=== PATIENT | female | born 1995 | race Caucasian/White ===

== ENCOUNTER 2024-08-31 22:35 | Outpatient (CLI) | payer MEDICAID, SELFPAY ==
[2024-08-31 22:52] VITALS: BMI 40.1
[2024-08-31 22:58] VITALS: BP 146/77; PULSE 97; RESP 14; TEMP 36.6
[2024-08-31 22:59] VITALS: BP 134/68; PULSE 97
[2024-08-31 23:15] LABS: Red Blood Cells-Urine 0 SEEN /hpf (0-5)
[2024-08-31 23:23] LABS: Color, Urine Yellow (Yellow); Glucose, Dipstick Normal (Normal); Ketone-Dipstick Negative (Negative); Leukocyte Esterase-Dipstick 25 /ul (Negative); Nitrite-Dipstick Negative (Negative); Occult Blood-Urine Negative /ul (Negative); Protein-Dipstick Negative (Negative); Urine Bilirubin Dipstick Negative (Negative); Urine Clarity Clear (Clear); Urine Urobilinogen Normal (Normal); Urine pH 6.5 (5.0 - 8.0)
[2024-08-31 23:31] LABS: Bacteria 2+ /hpf (None Seen); Mucous, Urine RARE /hpf (<or=2+); Squamous Epithelial Cells - UA 5-10 SEEN /hpf (5-10); White Blood Cells 5-10 SEEN /hpf (0-5)
[2024-08-31] MEDS: Ondansetron 8 MG Tablet PO (23:54)
[2024-08-31] MEDS: Acetaminophen 500 MG Tablet 1000 MG PO (23:54)
--- NOTE | 2024-09-01 07:16 | OB.TRI.NOTE ---
HPI - General General Date of Admission: 08/31/24 Date of Service: 08/31/24 Chief Complaint: cramping HPI Narrative FREDO RUBIO, is a 29 F who presents abdominal cramping most of the day. Has not improved with rest or hydration. COVID positive 5 days ago. Nausea no vomiting/diarrhea. Improving symptoms. No contractions toco. EFM appropriate for gestational age. Zofran for nausea Maternal Data Information Final CAROLE: 11/15/24 Gestational age: 29+1 PFSH PFSH Home Medications ?Medication ?Instructions ?Recorded ?Last Taken ?Type aripiprazole 2 mg tablet (Abilify) 12 mg PO DAILY 08/31/24 08/31/24 History aspirin 81 mg capsule 81 mg PO DAILY 08/31/24 08/31/24 History budesonide-formoterol HFA 80 1 inh inhalation BID 08/31/24 08/30/24 History mcg-4.5 mcg/actuation aerosol inhaler (Symbicort) buspirone 15 mg tablet 15 mg PO BID 08/31/24 08/31/24 History famotidine 20 mg tablet (Pepcid) 20 mg PO DAILY 08/31/24 08/31/24 History venlafaxine 75 mg tablet 75 mg PO DAILY 08/31/24 Unknown History ondansetron 4 mg disintegrating 4 mg PO Q8H PRN nausea and 09/01/24 Unknown Rx tablet vomiting #20 tabs Allergy/AdvReac Type Severity Reaction Status Date / Time Penicillins (PCN) Allergy Severe Anaphylaxis Verified 08/31/24 23:56 fexofenadine (From Sarah) Allergy Intermediate migraines Verified 08/31/24 23:56 amitriptyline (From Elavil) Allergy Unknown PT UNSURE Verified 08/31/24 23:56 OF REACTION History 7 Elective abortions Hx Para 2 Spontaneous abortions Hx # Term Pregnancies Ectopic pregnancies Hx # Pregnancies Multiple births # of living children NST FHR Rate Baby A Baseline: 135 Variability:: Moderate Accelerations:: 10 x 10 Decelerations:: None NST Reactive:: Yes Uterine Activity:: quiet Assessment & Plan (1) Cramping affecting , antepartum: (2) 29 weeks gestation of : PLAN: Plan Routine visits
== END 2024-09-01 00:25 | disposition home or self-care (01) ==
LOC: WPOUT 22:51 → WP 22:51
PROVIDERS: PCP Family Medicine; Referring Provider Obstetrics & Gynecology; Visit Provider Obstetrics & Gynecology
DX: O99.891 Other specified diseases and conditions complicating pregnancy (principal); R10.9 Unspecified abdominal pain; Z79.899 Other long term (current) drug therapy; Z79.82 Long term (current) use of aspirin; Z3A.29 29 weeks gestation of pregnancy
CPT/HCPCS: 59025; 59050; 81001; 87086; 87088; 99221; G0378

== ENCOUNTER 2024-10-13 18:02 | Outpatient (CLI) | payer MEDICAID, SELFPAY ==
[2024-10-13 18:10] VITALS: BMI 40.8
[2024-10-13 18:27] VITALS: BP 133/77; PULSE 83; RESP 16; TEMP 36.8
[2024-10-13 18:30] LABS: Hematocrit 33.1 % (37-47); Hemoglobin 11.1 g/dL (12.0-15.0); Mean Corp Hgb Conc 33.5 g/dL (32-36); Mean Corpuscular Hgb 32.3 pg (27.0-32.0); Mean Corpuscular Volume 96.2 fL (81-99); Mean Platelet Vol. 10.5 fl (6.2-12.0); Platelet Count 310 K/mm3 (150-450); RBC Distribution Width CV 14.4 % (11.6-14.6); RBC Distribution Width SD 50.1 fl (35.1-43.9); Red Blood Count 3.44 M/mm3 (4.2-5.4); White Blood Count 15.4 K/mm3 (4.4-11.0)
[2024-10-13 18:43] VITALS: BP 130/75; PULSE 76
[2024-10-13 18:52] LABS: AST(SGOT) 13 U/L (15-37); Alanine Aminotransfer ALT/SGPT 16 U/L (13-56); EST Glomerular Filtration Rate 153 mL/min (>60); Est Glom Filt Rate - Afr Amer 185 mL/min (>60); Uric Acid 3.8 mg/dL (2.6-6.0)
[2024-10-13 18:58] VITALS: BP 133/76; PULSE 83
[2024-10-13 19:09] LABS: Protein, Urine (Random) 24.1 mg/dL (<11.9); Protein:Creat Ratio 340 mg/g CRE (0-200)
[2024-10-13 19:13] VITALS: BP 131/76; PULSE 77
[2024-10-13] MEDS: 0.9% Saline Lock 10 ML Syringe IV (19:30)
--- NOTE | 2024-10-13 19:31 | OB.TRI.NOTE ---
HPI - General HPI Narrative FREDO RUBIO, is a 29 F at 35.2 weeks gestation who presents to triage with headache, lower back pain and elevated blood pressures at home. She reports feeling nauseated today and not able to eat or drink much. Took BP at home and it was running 150's /90's. She denies any visual changes, SOB, CP or RUQ pain. No swelling. PFSH PFSH Home Medications ?Medication ?Instructions ?Recorded ?Last Taken ?Type aripiprazole 2 mg tablet (Abilify) 12 mg PO DAILY 08/31/24 10/13/24 08:00 History aspirin 81 mg capsule 81 mg PO DAILY 08/31/24 10/13/24 08:00 History budesonide-formoterol HFA 80 1 inh inhalation BID 08/31/24 10/13/24 08:00 History mcg-4.5 mcg/actuation aerosol inhaler (Symbicort) buspirone 15 mg tablet 15 mg PO BID 08/31/24 10/13/24 08:00 History venlafaxine 75 mg tablet 75 mg PO DAILY 08/31/24 10/13/24 08:00 History ondansetron 4 mg disintegrating 4 mg PO Q8H PRN nausea and 09/01/24 10/13/24 14:00 Rx tablet vomiting #20 tabs omeprazole 20 mg capsule,delayed 20 mg PO DAILY 10/13/24 10/13/24 08:00 History release Allergy/AdvReac Type Severity Reaction Status Date / Time Penicillins (PCN) Allergy Severe Anaphylaxis Verified 10/13/24 18:11 fexofenadine (From Sarah) Allergy Intermediate migraines Verified 10/13/24 18:11 amitriptyline (From Elavil) Allergy Unknown PT UNSURE Verified 10/13/24 18:11 OF REACTION History 7 Elective abortions Hx Para 2 Spontaneous abortions Hx # Term Pregnancies Ectopic pregnancies Hx # Pregnancies Multiple births # of living children ROS Eyes Eyes: Denies blurry vision Cardiovascular Cardiovascular: Reports none; Denies chest pain at rest, chest pain with activity or dizziness Respiratory/Chest Respiratory/Chest: Denies cough or dyspnea Gastrointestinal Gastrointestinal: Reports none and other; Denies diarrhea or vomiting Genitourinary Genitourinary: Denies dysuria Musculoskeletal Musculoskeletal: Reports none Integumentary Integumentary: Reports none; Denies rash Neurologic Neurologic: Denies dizziness or other visual disturbances Psychiatric Psychiatric: Reports none Physical Exam Const alert and no apparent distress General Appearance: cooperative Orientation / Consciousness: awake Exam Limitations: no limitations HEENT normocephalic Eyes General Eye: normal appearance of both eyes Neck full ROM Chest inspection of chest normal Resp normal respiratory effort and normal air movement Effort and Inspection: symmetric chest movement Auscultation: clear to auscultation bilaterally Cardio regular rate GI soft to palpation, non-tender and non-distended Inspection: and other Back/Spine normal ROM Extremity full ROM, normal capillary refill and no calf tenderness Skin no rashes or lesions noted Neuro oriented x3 and CN's II-XII intact bilaterally Psych mental status grossly normal NST FHR Rate Baby A Baseline: 125 Variability:: Moderate Accelerations:: 15 x 15 Decelerations:: None NST Reactive:: Yes FHR Category:: Category I Uterine Activity:: Irritability Assessment & Plan (1) 35 weeks gestation of : (2) History of pre-eclampsia: (3) LGA (large for gestational age) fetus: (4) Polyhydramnios: (5) Supraventricular tachycardia: (6) ADHD: (7) Anxiety and depression: (8) Previous delivery, antepartum: (9) Proteinuria: PLAN: Plan BP monitoring- No severe range pressures 130's/70's since arrival Tylenol 1000 mg PO x 1 now Start IV and give 1000 cc bolus of LR PIH labs- normal ranges P/C ratio 340 UA sent- +bacteria and ketones Urine culture sent- will start treatment with Macrobid 100 mg PO BID x [address] Acuña involved with plan of care D/C home with follow up in office this week Desires TOLAC but has repeat C/S scheduled for next month
[2024-10-13] MEDS: Lactated Ringers 1,000 ML 999 ML IV (19:33)
[2024-10-13 19:39] VITALS: PULSE 75; O2SAT 98
[2024-10-13 19:51] LABS: Mucous, Urine 0 SEEN /hpf (<or=2+); Red Blood Cells-Urine 0 SEEN /hpf (0-5)
[2024-10-13] MEDS: Acetaminophen 500 MG Tablet 1000 MG PO (19:52)
[2024-10-13 19:54] LABS: Color, Urine Yellow (Yellow); Glucose, Dipstick Normal (Normal); Leukocyte Esterase-Dipstick 500 /ul (Negative); Nitrite-Dipstick Negative (Negative); Occult Blood-Urine Negative /ul (Negative); Protein-Dipstick Negative (Negative); Specific Gravity, Urine 1.005 (1.002-1.030); Urine Bilirubin Dipstick Negative (Negative); Urine Clarity Sl. Cloudy (Clear); Urine Urobilinogen Normal (Normal)
[2024-10-13 19:55] LABS: Ketone-Dipstick 150 mg/dl (Negative)
[2024-10-13 20:09] LABS: Bacteria 2+ /hpf (None Seen); Squamous Epithelial Cells - UA 0-5 SEEN /hpf (5-10); White Blood Cells 5-10 SEEN /hpf (0-5)
[2024-10-13] MEDS: Nitrofurantoin Macrocrystals 100 MG Capsule PO (20:57)
== END 2024-10-13 21:00 | disposition home or self-care (01) ==
LOC: WPOUT 18:07 → WP 18:07
PROVIDERS: PCP Family Medicine; Visit Provider Advanced Practice Midwife
DX: O99.891 Other specified diseases and conditions complicating pregnancy (principal); R51.9 Headache, unspecified; M54.50 Low back pain, unspecified; Z79.82 Long term (current) use of aspirin; Z79.899 Other long term (current) drug therapy; Z79.51 Long term (current) use of inhaled steroids; O36.63X0 Maternal care for excessive fetal growth, third trimester, not applicable or unspecified; O99.343 Other mental disorders complicating pregnancy, third trimester; F90.2 Attention-deficit hyperactivity disorder, combined type; F41.9 Anxiety disorder, unspecified; F32.A Depression, unspecified; Z3A.35 35 weeks gestation of pregnancy; R03.0 Elevated blood-pressure reading, without diagnosis of hypertension
CPT/HCPCS: 96360; 36415; 59025; 59050; 81001; 82565; 82570; 84156; 84450; 84460; 84550; 85027; 87086; 87088; 99221; A4216; G0378

== ENCOUNTER 2024-10-24 08:34 | Outpatient (CLI) | payer MEDICAID, SELFPAY ==
[2024-10-24] VITALS (9 sets, daily range): BP systolic 120–135; BP diastolic 61–80; PULSE 70–92; RESP 16; TEMP 36.8; O2SAT 97–99; BMI 41.0
[2024-10-24 09:34] LABS: Hemoglobin 10.7 g/dL (12.0-15.0); Mean Corp Hgb Conc 33.4 g/dL (32-36); Mean Corpuscular Hgb 32.3 pg (27.0-32.0); Mean Corpuscular Volume 96.7 fL (81-99); Mean Platelet Vol. 10.4 fl (6.2-12.0); Platelet Count 263 K/mm3 (150-450); RBC Distribution Width SD 49.3 fl (35.1-43.9); Red Blood Count 3.31 M/mm3 (4.2-5.4)
[2024-10-24 09:51] LABS: AST(SGOT) 16 U/L (15-37); Alanine Aminotransfer ALT/SGPT 12 U/L (13-56); EST Glomerular Filtration Rate 124 mL/min (>60); Est Glom Filt Rate - Afr Amer 150 mL/min (>60); Estimated Creatinine Clearance 163.38 ml/min; Uric Acid 3.9 mg/dL (2.6-6.0)
[2024-10-24 09:55] LABS: Protein, Urine (Random) 11.1 mg/dL (<11.9); Protein:Creat Ratio 337 mg/g CRE (0-200)
--- NOTE | 2024-10-24 18:33 | OB.TRI.HP_ITS ---
HPI - General HPI Narrative FREDO RUBIO, is a 29 F who presents for elevated BP at home in 150's. Headache that was present since waking up but did not take anything at this time. No visual changes or RUQ pain. Maternal Data Information Final CAROLE: 10/15/24 PFSH PFSH Home Medications ?Medication ?Instructions ?Recorded ?Last Taken ?Type aripiprazole 2 mg tablet (Abilify) 12 mg PO DAILY 08/31/24 10/23/24 07:00 History 12 mg aspirin 81 mg capsule 81 mg PO DAILY 08/31/24 10/23/24 07:00 History 81 mg budesonide-formoterol HFA 80 1 inh inhalation BID 08/31/24 10/23/24 21:31 History mcg-4.5 mcg/actuation aerosol 2 inh inhaler (Symbicort) buspirone 15 mg tablet 15 mg PO BID 08/31/24 10/23/24 21:00 History 15 mg venlafaxine 75 mg tablet 75 mg PO DAILY 08/31/24 10/23/24 07:00 History 75 mg ondansetron 4 mg disintegrating 4 mg PO Q8H PRN nausea and 09/01/24 10/23/24 18:00 Rx tablet vomiting #20 tabs 4 mg omeprazole 20 mg capsule,delayed 20 mg PO DAILY 10/13/24 10/23/24 07:00 History release 20 mg vit no.95-ferrous 1 tab PO DAILY 10/24/24 10/23/24 07:00 History fumarate 28 mg-folic acid 800 mcg 1 TAB tablet () Allergy/AdvReac Type Severity Reaction Status Date / Time Penicillins (PCN) Allergy Severe Anaphylaxis Verified 10/24/24 09:31 fexofenadine (From Sarah) Allergy Intermediate migraines Verified 10/24/24 09:31 amitriptyline (From Elavil) Allergy Unknown PT UNSURE Verified 10/24/24 09:31 OF REACTION History 7 Elective abortions Hx Para 2 Spontaneous abortions Hx # Term Pregnancies Ectopic pregnancies Hx # Pregnancies Multiple births # of living children Physical Exam Const alert and oriented x3 General Appearance: cooperative Orientation / Consciousness: awake, oriented to person, oriented to place and or iented to time Exam Limitations: no limitations HEENT normocephalic Head and Scalp: normal to inspection, normocephalic and atraumatic Face and Sinus: normal facial exam Eyes General Eye: normal appearance of both eyes Neck full ROM Chest Chest: symmetrical chest wall rise Resp normal respiratory effort and normal air movement Auscultation: clear to auscultation bilaterally Cardio regular rate, regular rhythm, S1 normal heart sound, S2 normal heart sound, no murmurs, no rub, no gallops and no clicks GI normal to inspection, nondistended, normoactive bowel sounds and non-tender appearance of the vagina normal Bladder / Kidney Exam: no CVA tenderness Back/Spine normal ROM Extremity normal to inspection and full ROM Skin no rashes or lesions noted Neuro oriented x3 and moves all extremities Sensorium / Orientation: awake, alert and oriented to person Motor Exam: clonus absent Deep Tendon Reflexes: Rt Patellar (L4): 2+ and Lt Patellar (L4): 2+ NST FHR Rate Baby A Baseline: 125 Variability:: Moderate Accelerations:: 15 x 15 Decelerations:: None NST Reactive:: Yes Uterine Activity:: None Assessment & Plan (1) Proteinuria: (2) 36 weeks gestation of : PLAN: Plan 1) Elevated BP at home but mild range on unit. Does not meet criteria for preeclampsia but proteinuria. History of preeclampsia with severe features. Headache today. discussed option for IOL and will return tomorrow for induction. 2) D/C home
== END 2024-10-24 11:03 | disposition home or self-care (01) ==
LOC: WPOUT 08:45 → WP 08:46
PROVIDERS: PCP Family Medicine; Referring Provider Advanced Practice Midwife; Visit Provider Advanced Practice Midwife
DX: O12.13 Gestational proteinuria, third trimester (principal); Z3A.36 36 weeks gestation of pregnancy; O99.891 Other specified diseases and conditions complicating pregnancy; R03.0 Elevated blood-pressure reading, without diagnosis of hypertension; R51.9 Headache, unspecified; Z79.899 Other long term (current) drug therapy; Z79.82 Long term (current) use of aspirin
CPT/HCPCS: 36415; 59025; 59050 ×2; 82565; 82570; 84156; 84450; 84460; 84550; 85027; G0378 ×2; 99221

== ENCOUNTER 2024-10-25 07:47 | Inpatient (IN) | payer MEDICAID, SELFPAY ==
[2024-10-25] VITALS (45 sets, daily range): BP systolic 125–160; BP diastolic 55–87; PULSE 61–94; RESP 15–18; TEMP 36.1–36.9; O2SAT 97–100; BMI 41.4
[2024-10-25 08:31] LABS: Absolute Lymphocyte Count 2.13 X10^3/uL (0.83-4.51); Absolute Neutrophil Count 8.8 X10^3/uL (2.0-7.7); Basophil# 0.05 X10^3/uL; Basophil% 0.4 % (0-1); Eosinophils% 2.5 % (0-5); Hematocrit 33.1 % (37-47); Hemoglobin 11.1 g/dL (12.0-15.0); Lymphocyte # 2.13 X10^3/ul (0.83-4.51); Lymphocyte % 17.5 % (19-41); Mean Corp Hgb Conc 33.5 g/dL (32-36); Mean Corpuscular Hgb 32.2 pg (27.0-32.0); Mean Corpuscular Volume 95.9 fL (81-99); Mean Platelet Vol. 10.8 fl (6.2-12.0); Monocyte# 0.78 X10^3/uL; Monocyte% 6.4 % (0-10); NRBC Flagged by Analyzer 0 % (0-5); Neutrophil # 8.75 X10^3/uL (2.7-7.7); Neutrophil % 72.1 % (47-70); Platelet Count 288 K/mm3 (150-450); RBC Distribution Width CV 14.3 % (11.6-14.6); RBC Distribution Width SD 49.9 fl (35.1-43.9); Red Blood Count 3.45 M/mm3 (4.2-5.4); White Blood Count 12.1 K/mm3 (4.4-11.0)
--- NOTE | 2024-10-25 08:32 | PCM.HP.OB ---
HPI - General General Date of Admission: 10/25/24 Date of Service: 10/25/24 Chief Complaint: Pre E at term HPI Narrative FREDO RUBIO, is a 29 F who presents IOL for Pre E. Previous c/s for elevated BP. Successful at 40 weeks. No headache today. Reviewed risk of IOL with previous c/s. Will jave low threshold for repeat c/s. Pit and dee only. No Cytotec. GBS unknown. Rapid collected Maternal Data Information Final CAROLE: 11/15/24 Gestational age: 37 PFSH PFSH Home Medications ?Medication ?Instructions ?Recorded ?Last Taken ?Type aripiprazole 2 mg tablet (Abilify) 12 mg PO DAILY anxiety 08/31/24 10/25/24 History aspirin 81 mg capsule 81 mg PO DAILY 08/31/24 10/25/24 History budesonide-formoterol HFA 80 1 inh inhalation BID asthma 08/31/24 10/25/24 History mcg-4.5 mcg/actuation aerosol inhaler (Symbicort) buspirone 15 mg tablet 15 mg PO BID depression 08/31/24 10/25/24 History venlafaxine 75 mg tablet 75 mg PO DAILY depression 08/31/24 10/25/24 History ondansetron 4 mg disintegrating 4 mg PO Q8H PRN nausea and 09/01/24 10/25/24 Rx tablet vomiting #20 tabs omeprazole 20 mg capsule,delayed 20 mg PO DAILY nausea 10/13/24 10/25/24 History release vit no.95-ferrous 1 tab PO DAILY 10/24/24 10/25/24 History fumarate 28 mg-folic acid 800 mcg tablet () Allergy/AdvReac Type Severity Reaction Status Date / Time nitrofurantoin (From Allergy Severe Hives Verified 10/25/24 08:13 Macrobid) Penicillins (PCN) Allergy Severe Anaphylaxis Verified 10/25/24 08:13 fexofenadine (From Sarah) Allergy Intermediate migraines Verified 10/25/24 08:13 amitriptyline (From Elavil) Allergy Unknown PT UNSURE Verified 10/25/24 08:13 OF REACTION History 7 Elective abortions Hx Para 2 Spontaneous abortions Hx # Term Pregnancies Ectopic pregnancies Hx # Pregnancies Multiple births # of living children NST FHR Rate Baby A Baseline: 135 Variability:: Moderate Accelerations:: 15 x 15 Decelerations:: None NST Reactive:: Yes FHR Category:: Category I Uterine Activity:: q 2 ROS Constitutional Constitutional: Denies fatigue, fever(s) or malaise Eyes Eyes: Denies change in vision ENT HEENT: Denies dizziness or headache(s) Cardiovascular Cardiovascular: Denies chest pain, dyspnea or lightheadedness Respiratory/Chest Respiratory/Chest: Denies cough or dyspnea Gastrointestinal Gastrointestinal: Denies change in bowel habits Genitourinary Genitourinary: Denies burning urination or genital lesions Integumentary Integumentary: Denies rash Neurologic Neurologic: Denies confusion, dizziness, headache(s), numbness or weakness Vital Signs Vital Signs Vital Signs: 10/25/24 08:15 10/25/24 08:15 10/25/24 08:17 Pulse Rate 81 72 Blood Pressure 147/87 H BP Systolic 147 BP Diastolic 87 Pulse Ox 10/25/24 08:17 10/25/24 08:22 10/25/24 08:22 Pulse Rate 91 Blood Pressure BP Systolic BP Diastolic Pulse Ox 98 98 10/25/24 08:25 10/25/24 08:25 10/25/24 08:30 Pulse Rate 78 72 Blood Pressure BP Systolic BP Diastolic Pulse Ox 98 10/25/24 08:30 Pulse Rate Blood Pressure BP Systolic BP Diastolic Pulse Ox 99 Physical Exam Const alert and no apparent distress General Appearance: cooperative HEENT normocephalic Resp normal respiratory effort Cardio regular rate GI soft to palpation GI Narrative: gravid, nontender, appropriate for gestational age Extremity no calf tenderness General Extremity: edema Skin no wounds Rashes: No rashes noted Psych activity/motor behavior normal Labs Labs Labs: Blood Type Pending Antibody Screen Pending Hct 33.1 % (37-47) L Hgb 11.1 g/dL (12.0-15.0) L Syphilis Total Ab Pending Assessment & Plan (1) Preeclampsia: QUALIFIERS: Trimester: third trimester Qualified Code(s): O14.93 - Unspecified pre-eclampsia, third trimester (2) 37 weeks gestation of : (3) Polyhydramnios: QUALIFIERS: Fetus number: single or unspecified fetus Trimester: third trimester Qualified Code(s): O40.3XX0 - Polyhydramnios, third trimester, not applicable or unspecified (4) LGA (large for gestational age) fetus: PLAN: Plan IOL for Pre E labs collected GBS unknown. Rapid pending. Epidural prn
[2024-10-25 08:44] LABS: AST(SGOT) 11 U/L (15-37); Alanine Aminotransfer ALT/SGPT 13 U/L (13-56); Creatinine, Serum 0.62 mg/dL (0.55-1.02); EST Glomerular Filtration Rate 119 mL/min (>60); Est Glom Filt Rate - Afr Amer 144 mL/min (>60); Estimated Creatinine Clearance 159.02 ml/min; Uric Acid 3.8 mg/dL (2.6-6.0)
[2024-10-25 08:47] LABS: Protein, Urine (Random) 6.5 mg/dL (<11.9); Protein:Creat Ratio 351 mg/g CRE (0-200)
[2024-10-25 08:58] LABS: Amphetamine Urine VISTA NEGATIVE (<1000 ng/mL); Barbiturate Urine VISTA NEGATIVE (< 200 ng/mL); Benzodiazepine Urine VISTA NEGATIVE (< 200 ng/mL); Cocaine Urine VISTA NEGATIVE (< 300 ng/mL); Ecstacy Urine VISTA NEGATIVE (< 500 ng/mL); Methadone Urine VISTA NEGATIVE (< 300 ng/mL); PCP Urine VISTA NEGATIVE (< 25 ng/mL); THC Urine VISTA POSITIVE (< 50 ng/mL); Vista UDS pH Range 6
[2024-10-25 09:03] LABS: Syphilis Antibodies Non-reactive
[2024-10-25] MEDS: Oxytocin 15 Units/NS 250ml 15 UNITS/250 ML IV.SOLN 2 UNITS IV (09:32)
[2024-10-25] MEDS: Lactated Ringers 1,000 ML 50 ML IV (09:34)
[2024-10-25] MEDS: Ondansetron 4 MG/2 ML Vial IV ×2 (11:32→18:57)
--- NOTE | 2024-10-25 12:26 | PCM.RX.CS ---
Consult Antibiotic Management Pharmacy has been consulted to manage selected antibiotic: Vancomycin Type of Intervention Type of Consult: New start Suspected Infection Suspected Infection: Other (GBS PPX) Labs Labs: Creatinine 0.62 mg/dL (0.55-1.02) 10/25/24 08:00 Est GFR (MDRD) Af Amer 144 mL/min (>60) 10/25/24 08:00 Est GFR (MDRD) Non-Af 119 mL/min (>60) 10/25/24 08:00 Microbiology Microbiology: Microbiology 10/25/24 08:30 Genital vaginal Group B Streptococcus (PCR) - Final Streptococcus group B Dosing Weight Weight used for dosin.5 kg Estimated Creatinine Clearance Estimated Creatinine Clearance: ~ 159 Goal Trough Goal Trough: 10-15 mcg/mL Pharmacy Plan for Drug Dosing Pharmacy Plan for Drug Dosing: Vancomycin 2000 mg IV Q8H, trough prior to 4th dose. Pharmacy Service will continue to monitor and adjust dosing as required. Follow-Up Labs Follow-Up Labs: Trough: Vancomycin Date/Time Labs Ordered Labs to be done on [date and time ordered]: 10/26/24 @ 1200
[2024-10-25] MEDS: Vancomycin HCl 2,000 MG in 0.9% Normal Saline (500mL Bag) 500 ML 250 MG IV ×2 (13:12→21:39)
--- NOTE | 2024-10-25 17:39 | PCM.PN.OB ---
Subjective Subjective Caba bulb placed. [address] Cat I Pit at 12 Objective Data Objective Data Vital Signs: Vital Signs Temp Pulse Resp BP Pulse Ox 97.8 F 63 18 129/62 H 97 10/25/24 16:58 10/25/24 16:58 10/25/24 16:58 10/25/24 16:58 10/25/24 13:11 Weight: 109.5 kg Body Mass Index (BMI) 41.4 Intake & Output: Intake and Output for Last 24 Hours 10/23/24 10/24/24 10/25/24 23:59 23:59 23:59 Intake Total 43.37 / 43.37 Balance 43.37 / 43.37 Lab / Micro Data 10/25/24 08:00 10/25/24 08:00 Labs: Laboratory Results - last 24 hr 10/25/24 08:00: WBC 12.1 H, RBC 3.45 L, Hgb 11.1 L, Hct 33.1 L, MCV 95.9, MCH 32.2 H, MCHC 33.5, RDW Std Deviation 49.9 H, RDW Coeff of Danisha 14.3, Plt Count 288, MPV 10.8, Immature Gran % (Auto) 1.100 H, Neut % (Auto) 72.1 H, Lymph % (Auto) 17.5 L, [place] % (Auto) 6.4, Eos % (Auto) 2.5, Baso % (Auto) 0.4, Absolute Neuts (auto) 8.8 H, Absolute Lymphs (auto) 2.13, Nucleated RBC % 0, Creatinine 0.62, Estim Creat Clear Calc 159.02, Est GFR (MDRD) Af Amer 144, Est GFR (MDRD) Non-Af 119, Uric Acid 3.8, AST 11 L, ALT 13, U Random Total Protein 6.5, Urine Creatinine 18.50, Protein/Creatinin Ratio 351 H, Syphilis Total Ab Non-reactive, Blood Type A POSITIVE, Antibody Screen NEGATIVE 10/25/24 08:30: Urine Opiates Screen NEGATIVE, Urine Methadone Screen NEGATIVE, Ur Barbiturates Screen NEGATIVE, Ur Phencyclidine Scrn NEGATIVE, Ur Amphetamines Screen NEGATIVE, MDMA (Ecstasy) Screen NEGATIVE, U Benzodiazepines Scrn NEGATIVE, Urine Cocaine Screen NEGATIVE, U Cannabinoids Screen POSITIVE H, Ur Drug Screen Comment Micro: Microbiology 10/25/24 08:30 Genital vaginal Group B Streptococcus (PCR) - Final Streptococcus group B NST FHR Rate Baby A Baseline: 140 Variability:: Moderate Accelerations:: 15 x 15 Decelerations:: None NST Reactive:: Yes FHR Category:: Category I Uterine Activity:: q 3 Assessment & Plan (1) 37 weeks gestation of : (2) Proteinuria: QUALIFIERS: Proteinuria type: gestational Trimester: third trimester Qualified Code(s): O12.13 - Gestational proteinuria, third trimester (3) Preeclampsia: QUALIFIERS: Trimester: third trimester Qualified Code(s): O14.93 - Unspecified pre-eclampsia, third trimester PLAN: Plan Epidural prn. AROM when able
[2024-10-25] MEDS: Lactated Ringers 1,000 ML 999 ML IV (19:24)
[2024-10-25] MEDS: fentaNYL-bupivacaine (epidural) 100 ML BAG EPIDURAL (20:05)
--- NOTE | 2024-10-25 20:49 | PCM.PN.OB ---
Subjective Subjective AROM for light mec fluid. 3-4/70/-3 IUPC and FSE placed. Cat I tracing. Epidural in place. BPs stable Objective Data Objective Data Vital Signs: Vital Signs Temp Pulse Resp BP Pulse Ox 98.1 F 67 16 140/58 H 100 10/25/24 19:31 10/25/24 20:31 10/25/24 20:31 10/25/24 20:31 10/25/24 20:31 Weight: 109.5 kg Body Mass Index (BMI) 41.4 Intake & Output: Intake and Output for Last 24 Hours 10/23/24 10/24/24 10/25/24 23:59 23:59 23:59 Intake Total 1075.87 / 1075.87 Output Total 200 / 200 Balance 875.87 / 875.87 Lab / Micro Data 10/25/24 08:00 10/25/24 08:00 Labs: Laboratory Results - last 24 hr 10/25/24 08:00: WBC 12.1 H, RBC 3.45 L, Hgb 11.1 L, Hct 33.1 L, MCV 95.9, MCH 32.2 H, MCHC 33.5, RDW Std Deviation 49.9 H, RDW Coeff of Danisha 14.3, Plt Count 288, MPV 10.8, Immature Gran % (Auto) 1.100 H, Neut % (Auto) 72.1 H, Lymph % (Auto) 17.5 L, [place] % (Auto) 6.4, Eos % (Auto) 2.5, Baso % (Auto) 0.4, Absolute Neuts (auto) 8.8 H, Absolute Lymphs (auto) 2.13, Nucleated RBC % 0, Creatinine 0.62, Estim Creat Clear Calc 159.02, Est GFR (MDRD) Af Amer 144, Est GFR (MDRD) Non-Af 119, Uric Acid 3.8, AST 11 L, ALT 13, U Random Total Protein 6.5, Urine Creatinine 18.50, Protein/Creatinin Ratio 351 H, Syphilis Total Ab Non-reactive, Blood Type A POSITIVE, Antibody Screen NEGATIVE 10/25/24 08:30: Urine Opiates Screen NEGATIVE, Urine Methadone Screen NEGATIVE, Ur Barbiturates Screen NEGATIVE, Ur Phencyclidine Scrn NEGATIVE, Ur Amphetamines Screen NEGATIVE, MDMA (Ecstasy) Screen NEGATIVE, U Benzodiazepines Scrn NEGATIVE, Urine Cocaine Screen NEGATIVE, U Cannabinoids Screen POSITIVE H, Ur Drug Screen Comment Micro: Microbiology 10/25/24 08:30 Genital vaginal Group B Streptococcus (PCR) - Final Streptococcus group B NST FHR Rate Baby A Baseline: 135 Variability:: Moderate Accelerations:: 15 x 15 Decelerations:: None NST Reactive:: Yes FHR Category:: Category I Uterine Activity:: q 2-3 Assessment & Plan (1) 37 weeks gestation of : (2) Proteinuria: QUALIFIERS: Proteinuria type: gestational Trimester: third trimester Qualified Code(s): O12.13 - Gestational proteinuria, third trimester (3) Preeclampsia: QUALIFIERS: Trimester: third trimester Qualified Code(s): O14.93 - Unspecified pre-eclampsia, third trimester (4) Previous delivery, antepartum: PLAN: Plan Pit per protocol
[2024-10-26] VITALS (24 sets, daily range): BP systolic 117–156; BP diastolic 56–80; PULSE 64–106; RESP 15–22; TEMP 36.4–37.1; O2SAT 95–100
--- NOTE | 2024-10-26 | FALS_PTH ---
PATIENT: FREDO RUBIO LOC: [facility] U#:[id number] AGE/SX: ROOM: WP021 RE10/25/[address]: Hodan Bruno CNM : 1995 BED: 1 DIS: 10/28/2024 SPEC #: [id number] RECD: 10/26/24 13:05 STATUS: AUDI TONY #: [id number] TOBIN: 10/26/24 00:[address]: Hodan Bruno DEPT: SURGICAL PATHOLOGY RECD BY: Irvin Hazel ENTERED: 10/26/24 13:05 SP TYPE: FALL TUBES OTHR DR: Dr. Tammy Vasques, Tissues: Fallopian tube Procedures: Surgery Specimen Level II HEADER OPERATION: Tubal ligation PRE-OP DIAGNOSIS: Sterilization TISSUE SUBMITTED: Bilateral fallopian tubes - stitch in right MICROSCOPIC DIAGNOSIS Bilateral fallopian tubes, salpingectomy: Bilateral fallopian tubes, no pathologic diagnosis. SJ: 10/27/2024 MICROSCOPIC DESCRIPTION Slides are reviewed. GROSS DESCRIPTION Received in fixative is one container labeled with the patient's name and designated bilateral fallopian tubes- stitch on right. The specimen consists of bilateral fallopian tubes including fimbrial ends. Right fallopian tube measures 6.5 cm in length and 1 cm in diameter. Left fallopian tube measures 5.5cm in length and 1cm in diameter. Sections reveal unremarkable cut surfaces. Concentrator Operator sections are submitted in two cassettes: 1- right fallopian tube, 2- left fallopian tube. / TIERNEY: 10/26/2024 TC:4 CPT: 57772 x2
[2024-10-26] MEDS: Ondansetron 4 MG/2 ML Vial IV ×2 (00:31→12:13)
[2024-10-26] MEDS: 0.9% Saline Lock 10 ML Syringe IV ×4 (00:31→21:51)
[2024-10-26] MEDS: fentaNYL-bupivacaine (epidural) 100 ML BAG EPIDURAL ×2 (00:44→06:54)
[2024-10-26] MEDS: Lactated Ringers 1,000 ML 200 ML IV (02:30)
[2024-10-26] MEDS: Acetaminophen 500 MG Tablet PO (05:33)
--- NOTE | 2024-10-26 06:12 | PN.OBGYN_ITS ---
Subjective Subjective Reached maximum Pitocin titration. Has made very little cervical change. Vertex still at a high station. 4/80/-4. tracing has been overall reassuring. Discussed options with patient. Can take a pit break and restart or choose repeat for failed induction. Patient is opting for repeat . Patient would like a tubal and did complete a title 19 on 08/18/24. Objective Data Objective Data Vital Signs: Vital Signs Temp Pulse Resp BP Pulse Ox O2 Del Method 97.5 F L 96 15 156/73 H 100 Room Air 10/26/24 05:42 10/26/24 05:44 10/26/24 05:42 10/26/24 05:44 10/26/24 05:42 10/26/24 05:42 Oxygen Delivery Method Room Air Weight: 109.5 kg Body Mass Index (BMI) 41.4 Intake & Output: Intake and Output for Last 24 Hours 10/24/24 10/25/24 10/26/24 23:59 23:59 23:59 Intake Total 2150.67 / 2150.67 1093.5 / 1093.5 Output Total 200 / 200 Balance 1950.67 / 1950.67 1093.5 / 1093.5 Lab / Micro Data 10/25/24 08:00 10/25/24 08:00 Labs: Laboratory Results - last 24 hr 10/25/24 08:00: WBC 12.1 H, RBC 3.45 L, Hgb 11.1 L, Hct 33.1 L, MCV 95.9, MCH 32.2 H, MCHC 33.5, RDW Std Deviation 49.9 H, RDW Coeff of Danisha 14.3, Plt Count 288, MPV 10.8, Immature Gran % (Auto) 1.100 H, Neut % (Auto) 72.1 H, Lymph % (Auto) 17.5 L, [place] % (Auto) 6.4, Eos % (Auto) 2.5, Baso % (Auto) 0.4, Absolute Neuts (auto) 8.8 H, Absolute Lymphs (auto) 2.13, Nucleated RBC % 0, Creatinine 0.62, Estim Creat Clear Calc 159.02, Est GFR (MDRD) Af Amer 144, Est GFR (MDRD) Non-Af 119, Uric Acid 3.8, AST 11 L, ALT 13, U Random Total Protein 6.5, Urine Creatinine 18.50, Protein/Creatinin Ratio 351 H, Syphilis Total Ab Non-reactive, Blood Type A POSITIVE, Antibody Screen NEGATIVE 10/25/24 08:30: Urine Opiates Screen NEGATIVE, Urine Methadone Screen NEGATIVE, Ur Barbiturates Screen NEGATIVE, Ur Phencyclidine Scrn NEGATIVE, Ur Amphetamines Screen NEGATIVE, MDMA (Ecstasy) Screen NEGATIVE, U Benzodiazepines Scrn NEGATIVE, Urine Cocaine Screen NEGATIVE, U Cannabinoids Screen POSITIVE H, Ur Drug Screen Comment Micro: Microbiology 10/25/24 08:30 Genital vaginal Group B Streptococcus (PCR) - Final Streptococcus group B NST FHR Rate Baby A Baseline: 145 Variability:: Moderate Decelerations:: Early and Variable NST Reactive:: Yes FHR Category:: Category I Uterine Activity:: q3 Assessment & Plan (1) 37 weeks gestation of : (2) Preeclampsia: QUALIFIERS: Trimester: third trimester Qualified Code(s): O14.93 - Unspecified pre-eclampsia, third trimester (3) Previous delivery, antepartum: (4) Failed trial of labor following previous , antepartum: (5) Request for sterilization: PLAN: Plan Repeat with tubal IV site infiltration- will proceed once replaced
[2024-10-26] MEDS: Sodium Citrate/Citric Acid 30 ML UDC PO (07:14)
[2024-10-26] MEDS: Gentamicin IV 270 MG in Dextrose 5%-Water (50mL Bag) 50 ML 100 MG IVPB (07:29)
[2024-10-26] MEDS: Clindamycin 900 MG/50 ML BAG 75 MG IV (07:39)
[2024-10-26] MEDS: Azithromycin 500 MG in 0.9% Normal Saline (250mL Bag) 250 ML 255 MG IV (07:46)
--- NOTE | 2024-10-26 08:27 | EX.PCM.OBRPT ---
Assessment & Plan (1) Request for sterilization: (2) Failed trial of labor following previous , antepartum: (3) Proteinuria: QUALIFIERS: Proteinuria type: gestational Trimester: third trimester Qualified Code(s): O12.13 - Gestational proteinuria, third trimester (4) Preeclampsia: QUALIFIERS: Trimester: third trimester Qualified Code(s): O14.93 - Unspecified pre-eclampsia, third trimester (5) S/P : Maternal Data Information Final CAROLE: 11/15/24 Gestational age: 37+1 Operative Report (OB) Cecarean Details Procedure Type: low transverse (bilateral salpingectomy) Date of Procedure: 10/26/24 Procedure Start Time: 07:48 Procedure Stop Time: 08:24 Time of Delivery: 07:52 Pre-Operative Diagnosis: Repeat Elective and Desires elective sterilization Post-Operative Diagnosis: Same as Pre-operative diagnosis Classification: MENG Type of Anesthesia: Epidural Antibiotic Given: Clindamycin 600mg IV x1 and Gentamicin 1.5mg/kg IV x1 and Zithromax 500 mg/5 mL X1 Drain: Caba to straight drain Estimated Blood Loss: 800 Findings Description of surgery: Patient taken to the OR with epidural and Caba in place. Vaginal prep was performed. Epidural was dosed for . She was prepped and draped in the normal sterile fashion. A Pfannenstiel incision was made and carried down to the underlying fascia. The fascia was incised in the midline and extended laterally. The fascia was dissected from the muscle. The muscles divided in the midline. The peritoneum was entered bluntly and extended manually. A bladder blade was placed. A bladder flap was created. A low transverse incision was made and extended bluntly. The head was elevated to the incision. The shoulders delivered easily. The cried upon delivery. The cord was cut and clamped. The placenta was delivered with anne traction. The uterus was exteriorized and cleared of all clot and debris. The incision was repaired with 1-0 Vicryl x 2. A figure of 8 was used for hemostasis. Micheal fallopian tubes were elevated with Leesa clamps and the LigaSure was used to transect the mesosalpinx from the fimbria to the cornua. The uterus was returned the abdomen. The gutter cleared of all clots. The peritoneum was closed with 2-0 Monocryl. The fascia was closed with 1-0 Vicryl. The subcutaneous tissue was reapproximated with 2-0 Monocryl The skin was closed with 4-0. I performed the major parts of the procedure with the RFNA assisting with retraction and closing the skin. The sponge lap and needle count was correct x 2 Surgical findings: Presentation: Vertex and LOP Amniotic Membrane Rupture Type: Artificial Amniotic Fluid Description: Lightly stained meconium Placental Delivery Description: Spontaneous Placenta Disposition: [facility] Specimen collected: Yes Description of specimen(s) removed: fallopian tubes Cord Vessel Description: 3 Vessels Cord Entanglement: None Infant A gender: Female (1 minute): 8 (5 minute): 8 Delayed Cord Clamping: Yes Dean Of Faculty shoe cutter: Yes Manager Customer Service: Max Babin Tasks completed by staff assistant: Opening, Opening & closing and Retracting Complications Complications: No
[2024-10-26] MEDS: Oxytocin 15 Units/NS 250ml 15 UNITS/250 ML IV.SOLN 83 UNITS IV (08:40)
[2024-10-26] MEDS: Ketorolac 30 MG/ML Syringe IV ×3 (09:51→21:52)
[2024-10-26] MEDS: ARIPiprazole 2 MG Tablet PO (11:48)
[2024-10-26] MEDS: ARIPiprazole 10 MG Tablet PO (11:48)
[2024-10-26] MEDS: Pantoprazole Sodium 20 MG Tablet PO (11:49)
[2024-10-26] MEDS: busPIRone 15 MG TABLET PO (11:50)
[2024-10-26] MEDS: Acetaminophen 500 MG Tablet 1000 MG PO ×2 (11:50→18:32)
[2024-10-26] MEDS: Venlafaxine XR 75 MG Capsule 225 MG PO (12:46)
[2024-10-26 14:44] LABS: Pathology Specimen OB SEE PATHOLOGY REPORT
[2024-10-26] MEDS: Ondansetron 8 MG Tablet 4 MG PO (17:54)
[2024-10-27] MEDS: Acetaminophen 500 MG Tablet 1000 MG PO ×4 (00:25→18:14)
[2024-10-27] MEDS: busPIRone 15 MG TABLET PO ×3 (00:25→21:44)
[2024-10-27 00:26] VITALS: BP 128/75; PULSE 64; RESP 16; TEMP 36.3; O2SAT 100
[2024-10-27 03:47] VITALS: BP 129/82; PULSE 64; RESP 16; TEMP 36.5; O2SAT 97
[2024-10-27] MEDS: 0.9% Saline Lock 10 ML Syringe IV (03:51)
[2024-10-27] MEDS: Ibuprofen 600 MG Tablet PO ×4 (04:25→21:44)
[2024-10-27 06:49] VITALS: PULSE 74; RESP 16; O2SAT 98
[2024-10-27 07:21] LABS: Hematocrit 27.9 % (37-47); Hemoglobin 9.1 g/dL (12.0-15.0); Mean Corp Hgb Conc 32.6 g/dL (32-36); Mean Corpuscular Volume 98.2 fL (81-99); Mean Platelet Vol. 10.9 fl (6.2-12.0); Platelet Count 225 K/mm3 (150-450); RBC Distribution Width CV 14.2 % (11.6-14.6); RBC Distribution Width SD 50.9 fl (35.1-43.9); Red Blood Count 2.84 M/mm3 (4.2-5.4)
[2024-10-27 08:19] VITALS: BP 146/84; PULSE 89; RESP 16; TEMP 36.8; O2SAT 100
--- NOTE | 2024-10-27 08:36 | PCM.PROGNOTE ---
Subjective Subjective patient seen at bedside, doing well. Patient reports good pain control. lochia mild. breast and bottle feeding - passing flatus. no nausea or vomiting. urinating w/o difficulty. Objective Data Objective Data Vital Signs: Vital Signs Temp Pulse Resp BP Pulse Ox O2 Del Method 97.7 F L 74 16 129/82 H 98 Room Air 10/27/24 03:47 10/27/24 06:49 10/27/24 06:49 10/27/24 03:47 10/27/24 06:49 10/27/24 06:49 Oxygen Delivery Method Room Air Weight: 109.5 kg Body Mass Index (BMI) 41.4 Intake & Output: Intake and Output for Last 24 Hours 10/25/24 10/26/24 10/27/24 23:59 23:59 23:59 Intake Total 2150.67 / 2150.67 2780.92 / 2780.92 Output Total 200 / 200 2100 / 2100 400 / 400 Balance 1950.67 / 1950.67 680.92 / 680.92 -400 / -400 Lab / Micro Data 10/27/24 06:23 10/25/24 08:00 Labs: Laboratory Results - last 24 hr 10/27/24 06:23: WBC 17.0 H, RBC 2.84 L, Hgb 9.1 L, Hct 27.9 L, MCV 98.2, MCH 32.0, MCHC 32.6, RDW Std Deviation 50.9 H, RDW Coeff of Danisha 14.2, Plt Count 225, MPV 10.9 Micro: Microbiology 10/25/24 08:30 Genital vaginal Group B Streptococcus (PCR) - Final Streptococcus group B Physical Exam Narrative Abd: fundus firm. Dressing dry and intact. (small area outlined already with drainage-nothing extending). Const alert and oriented x3 General Appearance: cooperative HEENT normocephalic Neck General: normal visual inspection GI soft to palpation and non-distended GI Narrative: Fundus firm Extremity normal to inspection and no calf tenderness Skin no rashes or lesions noted Neuro oriented x3 and CN's II-XII intact bilaterally Psych mental status grossly normal Assessment & Plan Assessment/Plan (1) S/P : (2) Request for sterilization: (3) Failed trial of labor following previous , antepartum: (4) Obesity affecting : PLAN: Plan POD#1 , Doing well Routine care pain mgmt monitor VS ambulation
[2024-10-27] MEDS: Pantoprazole Sodium 20 MG Tablet PO (09:48)
[2024-10-27] MEDS: ARIPiprazole 10 MG Tablet PO (09:48)
[2024-10-27] MEDS: Venlafaxine XR 75 MG Capsule 225 MG PO (09:49)
[2024-10-27] MEDS: ARIPiprazole 2 MG Tablet PO (09:49)
[2024-10-27] MEDS: Senna/Docusate Sodium 1 Tablet PO (09:49)
[2024-10-27] MEDS: Enoxaparin 40 MG/0.4 ML Syringe SC (09:50)
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
[2024-10-27 15:00] VITALS: BP 145/79; PULSE 88; RESP 16; TEMP 36.7; O2SAT 98
[2024-10-27] MEDS: oxyCODONE 5 MG Tablet PO (20:37)
[2024-10-27 20:45] VITALS: BP 116/64; PULSE 82; RESP 16; TEMP 37.1; O2SAT 98
[2024-10-28] MEDS: Acetaminophen 500 MG Tablet 1000 MG PO ×2 (00:19→06:29)
[2024-10-28 02:55] VITALS: BP 133/68; PULSE 84; RESP 16; TEMP 36.9; O2SAT 97
[2024-10-28] MEDS: oxyCODONE 5 MG Tablet PO (03:24)
[2024-10-28] MEDS: Ibuprofen 600 MG Tablet PO ×2 (03:24→09:29)
--- NOTE | 2024-10-28 06:37 | PCM.DC.SUM ---
Providers Date of Admission: 10/25/24 Primary Care Physician: Dr. Tammy Vasques, DO Reason For Visit: INDUCTION Diagnosis Discharge Diagnosis (1) S/P : Status: Acute Code(s): Z98.891 - History of uterine scar from previous surgery (2) Request for sterilization: Status: Acute Code(s): Z30.2 - Encounter for sterilization Plan POD 3 C/S BP no severe ranges- 120-140/60-80's Breast and formula feeding Preeclampsia precautions reviewed and when to call office Follow up in 3 days in office Medications at Discharge Home Medications aripiprazole 2 mg tablet (Abilify) 12 mg PO DAILY anxiety 08/31/24 aspirin 81 mg capsule 81 mg PO DAILY 08/31/24 budesonide-formoterol HFA 80 mcg-4.5 mcg/actuation aerosol inhaler (Symbicort) 1 inh inhalation BID asthma 08/31/24 buspirone 15 mg tablet 15 mg PO BID depression 08/31/24 venlafaxine 75 mg tablet 225 mg PO DAILY depression 08/31/24 ondansetron 4 mg disintegrating tablet 4 mg PO Q8H PRN nausea and vomiting #20 tabs 09/01/24 omeprazole 20 mg capsule,delayed release 20 mg PO DAILY nausea 10/13/24 vit no.95-ferrous fumarate 28 mg-folic acid 800 mcg tablet () 1 tab PO DAILY 10/24/24 acetaminophen 500 mg tablet 1,000 mg (2 x 500 mg) PO Q6 #0 tabs 10/28/24 enoxaparin 40 mg/0.4 mL subcutaneous syringe 40 mg (0.4 mL) subcut DAILY #0 mL 10/28/24 ibuprofen 600 mg tablet 600 mg PO Q6H #0 tabs 10/28/24 oxycodone 5 mg tablet 5 - 10 mg (1 - 2 x 5 mg) PO Q4H PRN PRN Pain Score 4-10 3 days #10 tabs 10/28/24 sennosides 8.6 mg-docusate sodium 50 mg tablet (Stimulant Laxative Plus) 1 - 2 tab PO DAILY #0 tabs 10/28/24 venlafaxine 75 mg capsule,extended release 24 hr 225 mg (3 x 75 mg) PO DAILY #0 caps 10/28/24 Hospital Course Operations section Procedures None Summary of Care Provided Minutes Spent on Discharge: 15 Hospital Course: Patient had section. Hospital course was uneventful. Physical Exam Narrative Patient seen at bedside. Denies headache, vision changes, SOB, or CP. Ambulating and voiding without difficulty. Desires discharge home today. Const alert and no apparent distress General Appearance: cooperative and comfortable Exam Limitations: no limitations HEENT normocephalic Eyes General Eye: normal appearance of both eyes Neck full ROM General: normal visual inspection Chest Chest: symmetrical chest wall rise Resp normal respiratory effort and normal air movement Effort and Inspection: symmetric chest movement Auscultation: clear to auscultation bilaterally Cardio regular rate and regular rhythm GI normal to inspection, nondistended, normoactive bowel sounds Back/Spine normal ROM Extremity full ROM and no calf tenderness General Extremity: normal exam except as noted Skin no rashes or lesions noted Wound Narrative: Dressing is dry and intact. Neuro CN's II-XII intact bilaterally Psych mental status grossly normal Weight / BMI Weight Weight: 241 lb 6.499 oz Body Mass Index (BMI) 41.4 ABG / Lab / Microbiology Data 10/27/24 06:23 10/25/24 08:00 Laboratory: Laboratory Results - last 24 hr 10/27/24 06:23: WBC 17.0 H, RBC 2.84 L, Hgb 9.1 L, Hct 27.9 L, MCV 98.2, MCH 32.0, MCHC 32.6, RDW Std Deviation 50.9 H, RDW Coeff of Danisha 14.2, Plt Count 225, MPV 10.9 Microbiology: Microbiology 10/25/24 08:30 Genital vaginal Group B Streptococcus (PCR) - Final Streptococcus group B D/C Instructions Discharge Diet: No restrictions Discharge Activity: May Drive (2 weeks) and May Shower May resume sexual activity in: 6-8 weeks Weight Bearing Status: Weight bearing as tolerated Lifting Restricted to (Lbs): 25 Call your doctor if your incision/area has: Continuous Slow Oozing, Sudden Increased Bleeding, Increased Pain/ Swelling, Increased Redness, Foul Smelling Discharge and Swelling at the incision site Call your doctor if you observe: Fever of 101 or Higher, Numbness or Tingling, Using more than 1 pad per hour, Shortness of breath, Dizziness, Swelling in the ankles, Chest pain, Calf discomfort and Uncontrolled pain Suture Line Care: Avoid Pulling/Pushing Remove Dressing in: 5 days (Remove yourself or call office and schedule appointment for dressing removal.) DC O2, CPAP, BIPAP Needs Home O2 Discharge instructions: No When: 5 days for dressing removal or 2 weeks for post appointment. Meaningful Use Info Meaningful Use Meaningful Use Diagnoses (Choose all that apply): None applicable Ischemic Stroke Statin Dosing Therapy Reference: STATIN DOSE THERAPY REFERENCE: * Patients > 75 years receive moderate or high dose statin therapy. * Patients 75 years or YOUNGER should receive HIGH intensity statin dose unless contraindicated. You will be required to document reason for non-treatment if statin daily dose does not meet guidelines. HIGH DOSE STATIN THERAPY DAILY Atorvastatin > than or = to 40 mg Rosuvastatin > than or = to 20 mg Amlodipine + Atorvastatin > than or = to 2.5/40 mg Ezetimibe + Simvastatin 10/80 mg Simvastatin 80mg Discharge Plan Admission Admit Date/Time: 10/25/24 07:47 Primary Reason for Your Visit: Labor and Delivery Attending Provider: Hodan Bruno Primary Care Provider: Tammy Vasques Discharge Orders/Prescriptions Prescriptions: New venlafaxine 75 mg Capsule,Extended Release 24hr 225 mg PO DAILY Qty: 0 0RF sennosides-docusate sodium [Stimulant Laxative Plus] 8.6-50 mg Tablet 1 - 2 tab PO DAILY Qty: 0 0RF acetaminophen 500 mg Tablet 1,000 mg PO Q6 Qty: 0 0RF ibuprofen 600 mg Tablet 600 mg PO Q6H Qty: 0 0RF oxycodone 5 mg Tablet 5 - 10 mg PO Q4H PRN PRN (Reason: Pain Score 4-10) 3 Days Qty: 10 0RF enoxaparin 40 mg/0.4 mL Syringe 40 mg subcut DAILY Qty: 0 0RF Continued budesonide-formoterol [Symbicort] 80-4.5 mcg/actuation HFA aerosol inhaler 1 inh inhalation BID buspirone 15 mg tablet 15 mg PO BID aripiprazole [Abilify] 2 mg tablet 12 mg PO DAILY Rx Instructions: Patient takes 1 10mg tab and 1 2mg tab daily No Action omeprazole 20 mg capsule,delayed release(DR/EC) 20 mg PO DAILY aspirin 81 mg capsule 81 mg PO DAILY venlafaxine 75 mg tablet 225 mg PO DAILY ondansetron 4 mg tablet,disintegrating 4 mg PO Q8H PRN (Reason: nausea and vomiting) Qty: 20 0RF PNV cmb#95-ferrous fumarate-FA [] 28 mg iron- 800 mcg tablet 1 tab PO DAILY Referrals / Follow Up: Tammy Vasques DO [Primary Care Provider] - Disposition Disposition (needs filled in before D/C Order can be placed): Home, Self Care
[2024-10-28 09:13] VITALS: BP 134/74; PULSE 73; RESP 16; TEMP 36.7; O2SAT 100
[2024-10-28] MEDS: Venlafaxine XR 75 MG Capsule 225 MG PO (09:28)
[2024-10-28] MEDS: busPIRone 15 MG TABLET PO (09:28)
[2024-10-28] MEDS: ARIPiprazole 10 MG Tablet PO (09:28)
[2024-10-28] MEDS: ARIPiprazole 2 MG Tablet PO (09:28)
[2024-10-28] MEDS: Pantoprazole Sodium 20 MG Tablet PO (09:29)
[2024-10-28] MEDS: Senna/Docusate Sodium 1 Tablet PO (09:29)
[2024-10-28] MEDS: Enoxaparin 40 MG/0.4 ML Syringe SC (09:29)
--- NOTE | 2024-11-03 15:51 | NURSING ---
F/up phone call performed. Has been in and out of ER for blood pressure. Reports her OBGYN is aware and actually increased her blood pressure medication dosage today. Denies issues with c/s incision and vaginal bleeding. Pt. states she does feel like she has a little bit of PPD, but has already been seeing her established psychiatrist and increased one of those medications as well. Formula feeding-- doing well. MOB not producing enough, but got a new pump through [facility]. Denies further questions or concerns at this time.
== END 2024-10-28 12:30 | disposition home or self-care (01) | DRG 539 ==
PROVIDERS: Obstetrics & Gynecology; Admitting Provider Advanced Practice Midwife; PCP Family Medicine; Referring Provider Advanced Practice Midwife; Visit Provider Advanced Practice Midwife
DX: O14.94 Unspecified pre-eclampsia, complicating childbirth (principal); E66.9 Obesity, unspecified; O99.214 Obesity complicating childbirth; O12.14 Gestational proteinuria, complicating childbirth; O40.3XX0 Polyhydramnios, third trimester, not applicable or unspecified; O61.9 Failed induction of labor, unspecified; O66.41 Failed attempted vaginal birth after previous cesarean delivery; O77.0 Labor and delivery complicated by meconium in amniotic fluid; Z3A.37 37 weeks gestation of pregnancy; Z37.0 Single live birth; O34.219 Maternal care for unspecified type scar from previous cesarean delivery; Z30.2 Encounter for sterilization; Z79.82 Long term (current) use of aspirin; Z79.01 Long term (current) use of anticoagulants; Z79.899 Other long term (current) drug therapy
CPT/HCPCS: 36415; 59025; 59050; 76815; 80307; 82565; 82570; 84156; 84450; 84460; 84550; 85025; 85027; 86780; 86850; 86900; 86901; 87653; 88302; 99221; A4216; G0378; J2405

== ENCOUNTER 2024-11-01 14:17 | Emergency (ER) | payer MEDICAID, SELFPAY ==
[2024-11-01 14:19] VITALS: BP 136/93; PULSE 60; RESP 16; TEMP 35.9; O2SAT 99; BMI 38.7
--- NOTE | 2024-11-01 15:30 | ED.RN ---
Pt called to go back to ED room but refuses. Pt states I've been waiting too long, this is stupid. Pt states she's called for a ride and does not want seen in the ED.
== END 2024-11-01 15:30 | disposition left against medical advice (07) ==
LOC: ED 15:34
PROVIDERS: PCP Family Medicine
DX: Z53.21 Procedure and treatment not carried out due to patient leaving prior to being seen by health care provider (principal)

== ENCOUNTER 2024-11-02 10:30 | Outpatient (CLI) | payer MEDICAID, SELFPAY ==
[2024-11-02 10:54] VITALS: BMI 37.8
[2024-11-02 11:00] VITALS: BP 131/78; PULSE 68; RESP 16; TEMP 36.7; O2SAT 99
[2024-11-02 11:15] VITALS: BP 122/78; PULSE 64; RESP 16; O2SAT 99
[2024-11-02 11:25] LABS: Hematocrit 34.2 % (37-47); Hemoglobin 11.2 g/dL (12.0-15.0); Mean Corp Hgb Conc 32.7 g/dL (32-36); Mean Corpuscular Hgb 32.3 pg (27.0-32.0); Mean Corpuscular Volume 98.6 fL (81-99); Mean Platelet Vol. 9.8 fl (6.2-12.0); Platelet Count 403 K/mm3 (150-450); RBC Distribution Width CV 13.5 % (11.6-14.6); RBC Distribution Width SD 48.9 fl (35.1-43.9); Red Blood Count 3.47 M/mm3 (4.2-5.4); White Blood Count 11.8 K/mm3 (4.4-11.0)
[2024-11-02 11:33] VITALS: BP 133/91; PULSE 65; RESP 16; O2SAT 98
[2024-11-02 11:45] VITALS: BP 138/83; PULSE 64; RESP 16; O2SAT 99
[2024-11-02 11:53] LABS: AST(SGOT) 17 U/L (15-37); Alanine Aminotransfer ALT/SGPT 23 U/L (13-56); Creatinine, Serum 0.88 mg/dL (0.55-1.02); EST Glomerular Filtration Rate 79 mL/min (>60); Est Glom Filt Rate - Afr Amer 96 mL/min (>60); Estimated Creatinine Clearance 106.48 ml/min; Uric Acid 4.8 mg/dL (2.6-6.0)
[2024-11-02 12:00] VITALS: BP 130/77; PULSE 56; RESP 16; O2SAT 100
[2024-11-02] MEDS: Ibuprofen 600 MG Tablet PO (12:33)
[2024-11-02] MEDS: Metoclopramide 10 MG Tablet PO (12:33)
[2024-11-02] MEDS: DiphenhydrAMINE 25 MG Capsule PO (12:33)
[2024-11-02 13:25] VITALS: BP 137/90; PULSE 71; RESP 16; TEMP 36.7; O2SAT 99
--- NOTE | 2024-11-02 13:40 | OB.TRI.NOTE ---
HPI - General General Date of Admission: 11/02/24 Date of Service: 11/02/24 Chief Complaint: Headache HPI Narrative FREDO RUBIO, is a 29 F who presents headache. Was seen two days ago to [facility] and diagnosed with pre and was discharged with Procardia. BPs in office were mild but she has a persistent RAMON. Tylenol has not helped. Does have a hx of migraines. Labs WNL. BPs normal to mild in triage. Headache greatly improved with Reglan and Benadryl Maternal Data Information [facility]ational [facility] Medical History (Updated 11/02/24 @ 20:[address] Angelica Robertson MD) Obesity affecting Post-operative pain Home Medications ?Medication ?Instructions ?Recorded ?Last Taken ?Type aripiprazole 2 mg tablet (Abilify) 15 mg PO DAILY anxiety 08/31/24 11/02/24 08:00 History budesonide-formoterol HFA 80 1 inh inhalation BID asthma 08/31/24 11/02/24 08:00 History mcg-4.5 mcg/actuation aerosol inhaler (Symbicort) buspirone 15 mg tablet 15 mg PO BID depression 08/31/24 11/02/24 08:00 History omeprazole 20 mg capsule,delayed 20 mg PO DAILY nausea 10/13/24 11/02/24 08:00 History release vit no.95-ferrous 1 tab PO DAILY 10/24/24 11/02/24 08:00 History fumarate 28 mg-folic acid 800 mcg tablet () acetaminophen 500 mg tablet 1,000 mg (2 x 500 mg) PO Q6 #0 tabs 10/28/24 11/02/24 08:00 Rx ibuprofen 600 mg tablet 600 mg PO Q6H #0 tabs 10/28/24 11/02/24 04:00 Rx sennosides 8.6 mg-docusate sodium 1 - 2 tab PO DAILY #0 tabs 10/28/24 11/01/24 Rx 50 mg tablet (Stimulant Laxative Plus) venlafaxine 75 mg capsule,extended 225 mg (3 x 75 mg) PO DAILY #0 caps 10/28/24 11/02/24 08:00 Rx release 24 hr diphenhydramine HCl 25 mg capsule 25 mg PO TID PRN headache #30 caps 11/02/24 Unknown Rx (Benadryl) metoclopramide HCl 10 mg tablet 10 mg PO Q6H PRN headache #10 tabs 11/02/24 Unknown Rx (Reglan) nifedipine 30 mg tablet,extended 30 mg PO DAILY hypertension 11/02/24 11/02/24 08:00 History release 24 hr sulfamethoxazole 800 1 tab PO BID UTI 11/02/24 11/02/24 08:00 History mg-trimethoprim 160 mg tablet Allergy/AdvReac Type Severity Reaction Status Date / Time nitrofurantoin (From Allergy Severe Hives Verified 11/02/24 10:41 Macrobid) Penicillins (PCN) Allergy Severe Anaphylaxis Verified 11/02/24 10:41 fexofenadine (From Sarah) Allergy Intermediate migraines Verified 11/02/24 10:41 amitriptyline (From Elavil) Allergy Unknown PT UNSURE Verified 11/02/24 10:41 OF REACTION Surgical History (Updated 11/01/24 @ 00:02 by Zoltan Bullock) S/P Social History Smoking Status: Current every day smoker tobacco type: e-cigarettes History 7 Elective abortions Hx Para 3 Spontaneous abortions Hx # Term Pregnancies Ectopic pregnancies Hx # Pregnancies Multiple births # of living children Assessment & Plan (1) Headache in , : PLAN: Plan Continue Procardia as prescribed. Motrin, Benadryl and Reglan prn
== END 2024-11-02 13:45 | disposition home or self-care (01) ==
LOC: WPOUT 10:39 → WP 10:40
PROVIDERS: PCP Family Medicine; Referring Provider Obstetrics & Gynecology; Visit Provider Obstetrics & Gynecology
DX: O99.893 Other specified diseases and conditions complicating puerperium (principal); R51.9 Headache, unspecified; F17.290 Nicotine dependence, other tobacco product, uncomplicated; O99.335 Smoking (tobacco) complicating the puerperium; Z79.899 Other long term (current) drug therapy
CPT/HCPCS: 36415; 82565; 84450; 84460; 84550; 85027; 99221; G0378